=== PATIENT | female | born 1950 | race Caucasian/White ===

== ENCOUNTER 2017-04-27 06:53 | Day surgery (SDC) | payer MEDICARE, BC ==
[2017-04-27] MEDS ORDERED: Lactated Ringers 1,000 ML IV SCH (07:00)
[2017-04-27] MEDS ORDERED: Midazolam 1 MG/ML 2 ML SDV ONE (07:10)
[2017-04-27] MEDS ORDERED: fentaNYL 100 MCG/2 ML SDV ONE (07:10)
[2017-04-27] MEDS ORDERED: Propofol 200 MG/20 ML SDV ONE ×2 (07:10→08:44)
[2017-04-27] MEDS ORDERED: Glucagon,Human Recombinant 1 MG Vial ONE (08:43)
--- NOTE | 2017-04-27 13:30 | OR ---
DATE OF PROCEDURE: 04/27/2017 PREOPERATIVE DIAGNOSES: 1. Gastroesophageal reflux disease. 2. Abdominal pain. 3. Chronic diarrhea. POSTOPERATIVE DIAGNOSES: 1. Gastroesophageal reflux disease. 2. Abdominal pain. 3. Chronic diarrhea. 4. Diverticulosis. 5. Incomplete colonoscopy. PROCEDURE: Esophagogastroduodenoscopy with biopsy of gastroesophageal junction, attempted colonoscopy, successful only for 25 cm, random distal colon and rectal biopsies. ANESTHESIA: IV anesthesia with monitored anesthesia care. INDICATION: This 66-year-old white female is referred for upper and lower endoscopy. Indication for upper endoscopy is gastroesophageal reflux disease and some, which she says is minimal abdominal pain. Indication for colonoscopy is chronic diarrhea. She has had this since October of 2016. She says her last colonoscopic exam was done 5 years ago. She has a history also of polyps. She says that her colonoscopies are difficult to do. I counseled her for upper and lower endoscopy with possible biopsy including risks and alternatives, and she gave her informed consent to proceed. DESCRIPTION OF PROCEDURE: The patient was placed in the left lateral decubitus position. IV anesthesia was administered by the Anesthesia Service. Time-out was held. The flexible video Olympus upper endoscope was passed through her mouth, down her esophagus, and into her stomach. The scope was easily passed through the pylorus into the duodenum, reaching its 3rd portion. The scope was then slowly withdrawn, examining the mucosa throughout. The duodenal mucosa appeared unremarkable. The scope was brought through the pylorus. The antrum appeared unremarkable. The scope was retroflexed. The proximal stomach appeared unremarkable. The scope was straightened and brought up through the GE junction. The Z- line was straight but there appeared to be a rim of scar tissue here, consistent with chronic gastroesophageal reflux disease. We obtained multiple, at least 6 biopsies of the gastroesophageal junction. The scope was then brought proximally up through the remainder of the esophagus, which otherwise appeared unremarkable and it was removed. Next a rectal exam was performed, which was unremarkable. The flexible video Olympus colonoscope was introduced through her anus, up her rectum, and out her colon, we could only go to about 25 cm. We encountered a lot of spasm and at 25 cm, the polyp appeared to double back on itself, and we could not get the scope to go around despite applying abdominal compression and attempting maneuvers to accomplish this. We encountered multiple diverticula. We did obtain random colon biopsies of the distal colon and rectum as the scope was withdrawn examining the mucosa throughout. Other than diverticula, no mucosal abnormalities were noted. The scope was retroflexed in the rectum with the distal rectum appearing unremarkable. The scope was straightened and removed. She tolerated the procedure well. Raymon Irwin MD /[id number]
== END 2017-04-27 10:40 | disposition home or self-care (01) ==
LOC: JP.SDS 06:53
PROVIDERS: ATTEND Surgery
DX: K57.30 Diverticulosis of large intestine without perforation or abscess without bleeding (principal); K31.89 Other diseases of stomach and duodenum; K21.9 Gastro-esophageal reflux disease without esophagitis; F32.9 Major depressive disorder, single episode, unspecified; Z88.2 Allergy status to sulfonamides; Z91.09 Other allergy status, other than to drugs and biological substances
CPT/HCPCS: 43239; 45380; J1610; J2250; J2704; J3010; J7120; 88305

== ENCOUNTER 2018-05-03 07:10 | Day surgery (SDC) | payer MEDICARE ==
[2018-05-03] MEDS ORDERED: Lactated Ringers 1,000 ML IV SCH (07:30)
[2018-05-03] MEDS ORDERED: fentaNYL 100 MCG/2 ML SDV ONE (08:34)
[2018-05-03] MEDS ORDERED: Propofol 200 MG/20 ML SDV ONE (08:34)
[2018-05-03] MEDS ORDERED: Midazolam 1 MG/ML 2 ML SDV ONE (08:34)
--- NOTE | 2018-05-03 11:00 | OR ---
DATE OF PROCEDURE: 05/03/2018 PREOPERATIVE DIAGNOSIS: History of Park's esophagus. POSTOPERATIVE DIAGNOSES: Hiatal hernia, history of Park's esophagus, small gastric polyp. PROCEDURE: Esophagogastroduodenoscopy with biopsy resection of small gastric polyp, biopsy of gastroesophageal junction. SURGEON: Raymon Irwin MD ANESTHESIA: IV anesthesia with monitored anesthesia care. INDICATION: This 67-year-old white female has undergone an upper endoscopy with finding of Prak's esophagus in the past. Her last upper endoscopy was about a year ago. She is referred for upper endoscopy to evaluate for the Park's. I counseled her for an upper endoscopy with possible biopsy including risks and alternatives, and she gave her informed consent to proceed. DESCRIPTION OF PROCEDURE: The patient was placed in the left lateral decubitus position. IV anesthesia was administered by the Anesthesia Service. Time-out was held. The flexible video Olympus upper endoscope was passed through her mouth, down her esophagus, and into her stomach. The scope was easily passed through the pylorus into the duodenum reaching its third portion. The scope was then slowly withdrawn examining the mucosa throughout. The duodenal mucosa appeared unremarkable. The scope was brought up through the pylorus into the antrum. The antrum appeared unremarkable. The scope was retroflexed in the proximal stomach which showed to have a hiatal hernia and also there was a small polyp in the cardia of the stomach. This polyp was removed with the biopsy forceps. The scope was straightened and brought up through the hiatal hernia. The GE junction underwent 8 biopsies because of her history of Park's esophagus. The scope was then brought up through the remainder of the esophagus which otherwise appeared unremarkable and it was removed. She tolerated the procedure well. Raymon Irwin MD /[id number]
== END 2018-05-03 10:22 | disposition home or self-care (01) ==
LOC: JP.SDS 07:10
PROVIDERS: ATTEND Surgery
DX: K22.70 Barrett's esophagus without dysplasia (principal); K31.7 Polyp of stomach and duodenum; K44.9 Diaphragmatic hernia without obstruction or gangrene; C50.911 Malignant neoplasm of unspecified site of right female breast; K21.9 Gastro-esophageal reflux disease without esophagitis; Z88.2 Allergy status to sulfonamides; Z91.048 Other nonmedicinal substance allergy status
CPT/HCPCS: 43239; 88305; J2250; J2704; J3010; J7120

== ENCOUNTER 2018-05-28 14:32 | Emergency (ER) | payer MEDICARE ==
--- NOTE | 2018-05-28 15:37 | EDM.PDOC ---
ED HPI GENERAL MEDICAL PROBLEM - General Chief Complaint: Chest Pain Stated Complaint: SOB,CHEST PRESSURE,NAUSEA Time Seen by Provider: 05/28/18 15:30 Source of Information: Reports: Patient, Family, Provider, RN Notes Reviewed History Limitations: Reports: No Limitations - History of Present Illness INITIAL COMMENTS - FREE TEXT/NARRATIVE: 67-year-old female presents emergency department day complaint of shortness of breath and chest pressure, I did receive a call from her primary care provider who sent her to the emergency department for further evaluation. She has been evaluated in the urgent care over the last couple weeks initially treatment of doxycycline and short course of prednisone with no relief was set up for pulmonary function testing with her primary care. She describes it as a squeezing sensation in her chest that is positional feels better when she lays down doesn't totally resolve it is worse with exertion worse with standing up shortness of breath correlates with the chest pressure. She initially had some fevers early on they have resolved no nausea vomiting no diaphoresis, does have a history of angina which then led to a nuclear medicine Lexiscan which was negative prior. Chest x-ray done in clinic yesterday read by radiology no acute process Chest Pain Score (Numeric/FACES): 7 - Related Data Allergies Allergy/AdvReac Type Severity Reaction Status Date / Time adhesive Allergy Rash Verified 05/28/18 14:39 Sulfa (Sulfonamide Allergy Swelling Verified 05/28/18 14:39 Antibiotics) Home Meds: Home Meds Acetaminophen [Tylenol Arthritis Pain] 650 mg PO Q4HR PRN 01/28/13 [History] Aspirin [Low Dose Aspirin EC] 81 mg PO DAILY 01/28/13 [History] Calcium Carbonate/Vitamin D2 [Calcium with Vit D] 1 each PO BID 01/28/13 [ History] Cetirizine HCl/Pseudoephedrine [Zyrtec-D Tablet] 10 mg PO DAILY 01/28/13 [ History] Omeprazole [Prilosec] 20 mg PO BID 01/28/13 [History] Sertraline [Zoloft] 100 mg PO DAILY 01/28/13 [History] Vitamin B Complex 1 each PO DAILY 01/28/13 [History] Zolpidem [Ambien] 10 mg PO BEDTIME PRN 01/28/13 [History] Fluticasone Propionate [Flonase Allergy Relief] 2 ml NS DAILY 04/25/17 [History] Cholecalciferol (Vitamin D3) [Vitamin D3] 1,000 units PO DAILY 05/03/18 [History ] Past Medical History HEENT History: Reports: Allergic Rhinitis, Cataract, Impaired Vision Cardiovascular History: Reports: Hypertension Gastrointestinal History: Reports: Chronic Diarrhea, Colon Polyp, Diverticulosis , GERD, Hemorrhoids Genitourinary History: Reports: Renal Calculus [employer]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: Endometriosis, , Spontaneous Musculoskeletal History: Reports: Back Pain, Chronic, Osteoarthritis Psychiatric History: Reports: Depression Endocrine/Metabolic History: Reports: Osteopenia, Vitamin D Deficiency Hematologic History: Reports: Blood Transfusion(s) Oncologic (Cancer) History: Reports: Breast - Infectious Disease History Infectious Disease History: Reports: Chicken Pox, Measles, Mumps - Past Surgical History Head Surgeries/Procedures: Reports: None HEENT Surgical History: Reports: None Cardiovascular Surgical History: Reports: None Respiratory Surgical History: Reports: None GI Surgical History: Reports: Appendectomy, Cholecystectomy, Colonoscopy, EGD, Other (See Below) Other GI Surgeries/Procedures: Bowel resection with ruptured appendix 1981 Female Surgical History: Reports: Hysterectomy, Mastectomy, Salpingo- Oophorectomy Endocrine Surgical History: Reports: None Neurological Surgical History: Reports: None Musculoskeletal Surgical History: Reports: Other (See Below) Oncologic Surgical History: Reports: Biopsy of Breast, Mastectomy Dermatological Surgical History: Reports: None Social & Family History - Family History Family Medical History: Noncontributory - Tobacco Use Smoking Status *Q: Former Smoker Used Tobacco, but Quit: Yes Month/Year Tobacco Last Used: 1981 - Caffeine Use Caffeine Use: Reports: Coffee, Tea - Recreational Drug Use Recreational Drug Use: No ED ROS GENERAL - Review of Systems Review Of Systems: See Below Constitutional: Reports: Weakness. Denies: Fever, Chills, Diaphoresis HEENT: Reports: No Symptoms Respiratory: Reports: Shortness of Breath Cardiovascular: Reports: Chest Pain, Dyspnea on Exertion GI/Abdominal: Reports: No Symptoms : Reports: No Symptoms Musculoskeletal: Reports: No Symptoms Skin: Reports: No Symptoms Neurological: Reports: No Symptoms ED EXAM, GENERAL - Physical Exam Exam: See Below Free Text/Narrative:: General: Female, not in any distress, alert and oriented x3 HEENT: head is atraumatic normocephalic, eyes pupils equal round reactive to light, sclera clear no conjunctivitis appreciated. Ears tympanic membranes clear and amezcua landmarks and light reflex are present bilaterally canals are clear. Nose no septal deviation, nares are clear, no blood present. Mouth mucosa is moist and pink no erythema or exudate noted in soft palate, tongue is midline uvula is midline, dentition is intact. Neck: Supple no thyromegaly no tracheal deviation. Nodes: Cervical nodes subclavicular nodes nontender no palpable lymphadenopathy noted. Lungs: clear to auscultation bilaterally with symmetrical respirations, no adventitious noise appreciated. CV: Regular rate and rhythm S1 and S2 appreciated no murmurs rubs or gallops noted. Abdomen: Soft, nontender, no palpable masses or organomegaly appreciated, no distention no guarding bowel sounds are present, Neuro: Cranial nerves II through XII intact GCS 15 Skin: Warm and dry, intact Extremities: No lower extremity edema appreciated, pedal pulse is +2. Course - Vital Signs Last Recorded V/S: Last Vital Signs Temp 95.4 F 05/28/18 14:43 Pulse 59 L 05/28/18 16:00 Resp 14 05/28/18 16:00 BP 155/78 H 05/28/18 16:00 Pulse Ox 92 L 05/28/18 16:00 - Orders/Labs/Meds Orders: Active Orders 24 hr Category Date Time Status Cardiac Monitoring [RC] .As Directed Care 05/28/18 15:30 Active EKG Documentation Completion [RC] ASDIRECTED Care 05/28/18 15:31 Active EKG 12 Lead [EK] Stat Ther 05/28/18 15:31 Ordered Labs: Laboratory Tests 05/28/18 05/28/18 05/28/18 Range/Units 15:46 15:46 15:46 WBC 8.9 (4.5-11.0) K/uL RBC 4.80 (3.30-5.50) M/uL Hgb 14.3 (12.0-15.0) g/dL Hct 43.2 (36.0-48.0) % MCV 90 (80-98) fL MCH 30 (27-31) pg MCHC 33 (32-36) % Plt Count 331 (150-400) K/uL Neut % (Auto) 62 (36-66) % Lymph % (Auto) 25 (24-44) % [place] % (Auto) 12 H (2-6) % Eos % (Auto) 1 L (2-4) % Baso % (Auto) 0 (0-1) % D-Dimer, Quantitative 366 (0.0-400.0) ng/mL Sodium 141 (140-148) mmol/L Potassium 3.3 L (3.6-5.2) mmol/L Chloride 105 (100-108) mmol/L Carbon Dioxide 28 (21-32) mmol/L Anion Gap 11.3 (5.0-14.0) mmol/L BUN 11 (7-18) mg/dL Creatinine 0.7 (0.6-1.0) mg/dL Est Cr Clr Drug Dosing 33.51 mL/min Estimated GFR (MDRD) > 60 (>60) Glucose 88 (74-106) mg/dL Calcium 9.2 (8.5-10.1) mg/dL Total Bilirubin 0.5 (0.2-1.0) mg/dL AST 12 L (15-37) U/L ALT 22 (12-78) U/L Alkaline Phosphatase 91 (46-116) U/L Troponin I < 0.017 (0.000-0.056) ng/mL NT-Pro-B Natriuret Pep (5-125) pg/mL Total Protein 6.6 (6.4-8.2) g/dL Albumin 3.4 (3.4-5.0) g/dL Globulin 3.2 (2.3-3.5) g/dL Albumin/Globulin Ratio 1.1 L (1.2-2.2) TSH, Ultra Sensitive (0.358-3.740) uIU/mL 05/28/18 05/28/18 Range/Units 16:33 16:55 WBC (4.5-11.0) K/uL RBC (3.30-5.50) M/uL Hgb (12.0-15.0) g/dL Hct (36.0-48.0) % MCV (80-98) fL MCH (27-31) pg MCHC (32-36) % Plt Count (150-400) K/uL Neut % (Auto) (36-66) % Lymph % (Auto) (24-44) % [place] % (Auto) (2-6) % Eos % (Auto) (2-4) % Baso % (Auto) (0-1) % D-Dimer, Quantitative (0.0-400.0) ng/mL Sodium (140-148) mmol/L Potassium (3.6-5.2) mmol/L Chloride (100-108) mmol/L Carbon Dioxide (21-32) mmol/L Anion Gap (5.0-14.0) mmol/L BUN (7-18) mg/dL Creatinine (0.6-1.0) mg/dL Est Cr Clr Drug Dosing mL/min Estimated GFR (MDRD) (>60) Glucose (74-106) mg/dL Calcium (8.5-10.1) mg/dL Total Bilirubin (0.2-1.0) mg/dL AST (15-37) U/L ALT (12-78) U/L Alkaline Phosphatase (46-116) U/L Troponin I (0.000-0.056) ng/mL NT-Pro-B Natriuret Pep 112 (5-125) pg/mL Total Protein (6.4-8.2) g/dL Albumin (3.4-5.0) g/dL Globulin (2.3-3.5) g/dL Albumin/Globulin Ratio (1.2-2.2) TSH, Ultra Sensitive 0.783 (0.358-3.740) uIU/mL Departure - Departure Time of Disposition: 17:53 Disposition: Home, Self-Care 01 Condition: Fair Clinical Impression: Shortness of breath Referrals: Any Summers PA [Primary Care Provider] - Forms: ED Department Discharge Additional Instructions: Please keep your follow-up appointment with pulmonary medicine, call return to the emergency department worsening of symptoms - My Orders Last 24 Hours: My Active Orders 05/28/18 15:30 Cardiac Monitoring [RC] .As Directed 05/28/18 15:31 EKG Documentation Completion [RC] ASDIRECTED EKG 12 Lead [EK] Stat - Assessment/Plan Last 24 Hours: My Active Orders 05/28/18 15:30 Cardiac Monitoring [RC] .As Directed 05/28/18 15:31 EKG Documentation Completion [RC] ASDIRECTED EKG 12 Lead [EK] Stat Plan: Assessment Acuity = acute Site and laterality = shortness of breath and chest pain Etiology = suspicious for underlying chronic obstructive pulmonary disease Manifestations = none Location of injury = Home Lab values = CBC, CMP, troponin, TSH, BNP within normal limits EKG does demonstrates a sinus rhythm with suspicion of left ventricle hypertrophy, review of chest x-ray done from clinic shows hyperinflation consistent with emphysema Plan I did review lab work EKG results as well as chest x-ray results with her talk to her about the possibility of lung disease does have follow-up appointment with pulmonary medicine on the of this month. Also talked to her about starting a medication she declined at this time. This note was dictated using [employer] voice recognition software please call with any questions on syntax or grammar.
== END 2018-05-28 17:59 | disposition home or self-care (01) ==
LOC: JP.ED 14:32
DX: R06.02 Shortness of breath (principal); R07.89 Other chest pain; I10 Essential (primary) hypertension; M19.90 Unspecified osteoarthritis, unspecified site; F32.9 Major depressive disorder, single episode, unspecified; Z79.82 Long term (current) use of aspirin; Z79.899 Other long term (current) drug therapy; Z90.49 Acquired absence of other specified parts of digestive tract; Z90.710 Acquired absence of both cervix and uterus; Z88.2 Allergy status to sulfonamides; Z91.09 Other allergy status, other than to drugs and biological substances; Z87.891 Personal history of nicotine dependence
CPT/HCPCS: 36415; 80053; 83880; 84443; 84484; 85025; 85379; 93005; 99285-25

== ENCOUNTER 2024-12-11 07:23 | Day surgery (SDC) | payer MEDICARE ==
[2024-12-11] MEDS: Lactated Ringers 1,000 ML IV SCH (08:27)
[2024-12-11] MEDS ORDERED: fentaNYL 50 MCG/ML SDV ONE (08:32)
[2024-12-11] MEDS ORDERED: Propofol 200 MG/20 ML SDV ONE (08:32)
== END 2024-12-11 10:51 | disposition home or self-care (01) ==
LOC: JP.SDS 07:23
PROVIDERS: ATTEND Surgery
DX: K44.9 Diaphragmatic hernia without obstruction or gangrene (principal); K25.9 Gastric ulcer, unspecified as acute or chronic, without hemorrhage or perforation; Z88.2 Allergy status to sulfonamides; Z79.82 Long term (current) use of aspirin; Z91.09 Other allergy status, other than to drugs and biological substances; Z79.899 Other long term (current) drug therapy
CPT/HCPCS: 00731; 43239; 87081; J2704; J3010; J7120